=== PATIENT | female | born 1945 | race Caucasian/White ===

== ENCOUNTER 2022-04-28 13:41 | Emergency (ER) | payer MEDICARE, OTHER ==
[2022-04-28] MEDS ORDERED: CEPHALEXIN500 M1 PO (16:33)
== END 2022-04-28 17:18 | disposition home or self-care (01) ==
LOC: ER1 13:41
DX: S01.81XA Laceration without foreign body of other part of head, initial encounter (principal); S80.212A Abrasion, left knee, initial encounter; S80.211A Abrasion, right knee, initial encounter; I10 Essential (primary) hypertension; I25.10 Atherosclerotic heart disease of native coronary artery without angina pectoris; Z95.5 Presence of coronary angioplasty implant and graft; Z23 Encounter for immunization; W01.10XA Fall on same level from slipping, tripping and stumbling with subsequent striking against unspecified object, initial encounter
CPT/HCPCS: 12016; 70450; 72125; 90471; 90715; 99283